=== PATIENT | male | born 1970 | race Caucasian/White ===

== ENCOUNTER 2016-10-31 09:23 | Emergency (ER) | payer OTHER ==
[~2016-10-31] VITALS: Ht 182.9 cm; Wt 82.0 kg
[~2016-10-31 09:23] MED LIST: ABILIFY5 MG PO; AMBIEN10 MG PO; ARIPIPRAZOLE5 MG PO; BENADRYL25 MG PO; DECADRON4 MG PO; DEXAMETHASONE4 MG PO; FAMOTIDINE20 MG PO; HYDROCODON-ACE1 EAC7 PO; KEPPRA500 MG PO; LORAZEPAM0.5 MG PO; ONDANSETRON ODT4 MG PO; PAIN RELIEF EX500 MG PO; PAROXETINE HCL40 MG PO; PEPCID20 MG PO; VALIUM5 MG PO; ZOLPIDEM TARTRA10 MG PO
[2016-10-31 10:56] LABS: EOSINOPHIL (%) 2.4 % (0-5); EOSINOPHIL COUNT 0.1 K/uL (0-0.3); HEMATOCRIT 42.5 % (38.0-50.0); IMMATURE GRANULOCYTE (%) 0.4 % (0.0-0.7); INSTRUMENT ABS NEUTROPHIL CT 3.5 K/uL; LYMPHOCYTE COUNT 0.8 K/uL (1.0-2.8); MCH 30.2 PG (29.0-34.0); MCHC 32.2 G/DL (30.0-36.0); MCV 93.6 FL (86-99); MEAN PLAT.VOLUME 9.7 uM^3 (9.0-12.4); MONOCYTE (%) 5.2 % (3-12); MONOCYTE COUNT 0.2 K/uL (0-0.8); NEUTROPHIL COUNT 3.5 K/uL (1.8-6.4); PLATELET COUNT 278 K/uL (156-360); RBC DIS.WIDTH-CV 12.5 % (11.8-14.6); RBC DIS.WIDTH-SD 42.8 % (39-53); RED BLOOD COUNT 4.54 M/uL (4.00-5.50); WHITE BLOOD COUNT 4.7 K/uL (4.1-10.2)
[2016-10-31 11:07] LABS: CHLORIDE 103 mEq/L (99-109); POTASSIUM 3.9 mEq/L (3.7-5.4); SODIUM 142 mEq/L (136-147)
[2016-10-31 11:08] LABS: GLUCOSE 101 mg/dL (70-99)
[2016-10-31 11:10] LABS: ANION GAP 13 MEQ/L (2-14)
[2016-10-31 11:12] LABS: GFR ESTIMATE (CALCULATED) > 59 mL/min/
[2016-10-31 11:13] LABS: UREA NITROGEN (BUN) 11 mg/dL (9-23)
[2016-10-31 12:57] LABS: ADD MIUA? NO; BILIRUBIN NEGATIVE; BLOOD NEGATIVE; COLOR AMBER ((YELLOW)); GLUCOSE (STRIP) NEGATIVE; KETONES NEGATIVE; LEUKOCYTES NEGATIVE; NITRITE NEGATIVE; PROTEIN (STRIP) 30; SPECIFIC GRAVITY 1.039 (1.000-1.030); UCUL ADDED? NO; UROBILINOGEN 0.2 MG/DL (0.2-1.0)
[2016-10-31] MEDS ORDERED: LEVAQUIN500 MG PO (14:18)
[2016-10-31 17:00] VITALS: BP 119/86
== END 2016-10-31 17:00 | disposition home or self-care (01) ==
LOC: EME 09:23
DX: R50.9 Fever, unspecified (principal); C71.9 Malignant neoplasm of brain, unspecified; F32.9 Major depressive disorder, single episode, unspecified; F41.9 Anxiety disorder, unspecified
CPT/HCPCS: 70470; 71020; 80048; 81003; 83605; 85025; 87040; 99281; 99285; J7030

== ENCOUNTER 2017-03-20 11:11 | Inpatient (IN) | payer OTHER ==
[~2017-03-20] VITALS: Ht 182.9 cm; Wt 85.3 kg
[~2017-03-20 11:11] MED LIST changes: +LEVAQUIN500 MG PO
[2017-03-20 12:59] LABS: EOSINOPHIL (%) 3.6 % (0-5); EOSINOPHIL COUNT 0.2 K/uL (0-0.3); HEMATOCRIT 36.6 % (38.0-50.0); IMMATURE GRANULOCYTE (%) 0.2 % (0.0-0.7); INSTRUMENT ABS NEUTROPHIL CT 3.9 K/uL; LYMPHOCYTE COUNT 0.9 K/uL (1.0-2.8); MCH 29.3 PG (29.0-34.0); MCHC 32.8 G/DL (30.0-36.0); MCV 89.5 FL (86-99); MEAN PLAT.VOLUME 9.1 uM^3 (9.0-12.4); MONOCYTE COUNT 0.3 K/uL (0-0.8); NEUTROPHIL (%) 74.4 % (45-76); NEUTROPHIL COUNT 3.9 K/uL (1.8-6.4); PLATELET COUNT 191 K/uL (156-360); RBC DIS.WIDTH-CV 12.9 % (11.8-14.6); RBC DIS.WIDTH-SD 42.3 % (39-53); RED BLOOD COUNT 4.09 M/uL (4.00-5.50); WHITE BLOOD COUNT 5.3 K/uL (4.1-10.2)
[2017-03-20 13:08] LABS: CHLORIDE 103 mEq/L (99-109); POTASSIUM 3.5 mEq/L (3.7-5.4); SODIUM 139 mEq/L (136-147)
[2017-03-20 13:09] LABS: GLUCOSE 89 mg/dL (70-99)
[2017-03-20 13:11] LABS: ANION GAP 9 MEQ/L (2-14)
[2017-03-20 13:13] LABS: GFR ESTIMATE (CALCULATED) > 59 mL/min/
[2017-03-20 13:14] LABS: UREA NITROGEN (BUN) 9 mg/dL (9-23)
[2017-03-20] MEDS ORDERED: PAROXETINE HCL10 MG PO (15:47)
[2017-03-20] MEDS ORDERED: PAXIL40 MG PO (15:48)
[2017-03-20] MEDS ORDERED: LEVETIRACETAM1000 MG PO (15:50)
[2017-03-20] MEDS ORDERED: AMITRIPTYLINE H25 MG PO (15:50)
[2017-03-20] MEDS ORDERED: OXAYDO5 MG PO (15:52)
[2017-03-20] MEDS ORDERED: SENNA8.6 MG PO (15:53)
[2017-03-20] MEDS ORDERED: IBUPROFEN200 M1 PO (15:54)
[2017-03-20] MEDS ORDERED: ALLEGRA ALLERG180 MG PO (15:55)
[2017-03-20 18:43] VITALS: BP 118/72
[2017-03-20 23:30] VITALS: BP 106/58
[2017-03-21 03:35] VITALS: BP 108/66
[2017-03-21 07:26] VITALS: BP 114/72
[2017-03-21 11:46] VITALS: BP 118/75
[2017-03-21 14:58] VITALS: BP 120/72
[2017-03-21 23:33] VITALS: BP 118/75
[2017-03-22 08:10] VITALS: BP 112/68
== END 2017-03-22 13:13 | disposition home health service (06) | DRG 54 ==
LOC: EME 11:11 → EDOF 16:08 → 3EAST 16:08 → ENRESERV 16:10 → 3EAST 18:11
PROVIDERS: Emergency Medicine
DX: C71.9 Malignant neoplasm of brain, unspecified (principal); G93.6 Cerebral edema; G81.94 Hemiplegia, unspecified affecting left nondominant side; R29.6 Repeated falls; F43.23 Adjustment disorder with mixed anxiety and depressed mood; G93.89 Other specified disorders of brain; G44.89 Other headache syndrome; G40.909 Epilepsy, unspecified, not intractable, without status epilepticus; H54.0 Blindness, both eyes; F29 Unspecified psychosis not due to a substance or known physiological condition; Z92.3 Personal history of irradiation; Z88.8 Allergy status to other drugs, medicaments and biological substances; Z85.841 Personal history of malignant neoplasm of brain; Z79.899 Other long term (current) drug therapy; Z82.0 Family history of epilepsy and other diseases of the nervous system
CPT/HCPCS: 70450; 70553; 80048; 85025; 99281; 99285; J1650